=== PATIENT | male | born 1970 | race Caucasian/White ===

== ENCOUNTER 2023-02-20 16:30 | Inpatient (IN) | payer OTHER ==
[~2023-02-20] VITALS: Ht 167.6 cm; Wt 59.0 kg
[2023-02-20 16:30] VITALS: RESP 15; O2SAT 96
[2023-02-20] MEDS ORDERED: ACETAMINOPHEN 325 MG TAB PO PRN (16:55)
[2023-02-20] MEDS ORDERED: POTASSIUM CHLORIDE 10 MEQ TABER PO PRN (16:55)
[2023-02-20] MEDS ORDERED: MAG SULF 2000 MG/WATER PREMIX 50 ML IV PRN (16:55)
[2023-02-20] MEDS ORDERED: MAGNESIUM OXIDE 400 MG TAB PO PRN (16:55)
[2023-02-20] MEDS ORDERED: KCL 20 MEQ IN 100 mL PREMIX 200 ML IV PRN (16:55)
[2023-02-20] MEDS ORDERED: HYDROcodone/APAP 5/325 MG 1 TAB TAB PO PRN (16:55)
[2023-02-20] MEDS ORDERED: HALOPERIDOL IM 5 MG/ML VIAL IM PRN (16:55)
[2023-02-20] MEDS ORDERED: ONDANSETRON 4 MG/2 ML VIAL IVP PRN (16:55)
[2023-02-20] MEDS ORDERED: HALOPERIDOL IM 5 MG/ML VIAL ONE (17:01)
[2023-02-20 20:00] VITALS: BP 135/72; PULSE 64; RESP 17; TEMP 97.7; O2SAT 94
[2023-02-20] MEDS: LORazepam 2 MG/ML VIAL IVP PRN (21:12)
[2023-02-21 04:00] VITALS: BP 120/73; PULSE 60; RESP 18; TEMP 96.9; O2SAT 100
[2023-02-21 08:00] VITALS: PULSE 64; RESP 17; O2SAT 94
[2023-02-21] MEDS: MORPHINE SULFATE 4 MG/ML SYR IVP PRN ×2 (11:53→16:26)
[2023-02-21] MEDS: LORazepam 2 MG/ML VIAL IVP PRN ×2 (14:26→21:17)
[2023-02-21 18:00] VITALS: BP 120/73; PULSE 60; RESP 18; TEMP 96.9; O2SAT 100
[2023-02-21 20:00] VITALS: BP 131/88; PULSE 58; RESP 18; TEMP 98.1; O2SAT 100
[2023-02-22 04:00] VITALS: BP 100/61; PULSE 57; RESP 16; TEMP 97.5; O2SAT 100
[2023-02-22 07:42] LABS: BASOPHILS % (AUTO) 0.6 % (0.0-2.0); EOSINOPHILS # (AUTO) 0.3 K/uL (0-0.4); EOSINOPHILS % (AUTO) 5.6 % (0.0-4.0); HEMATOCRIT 38.4 % (36-52); HEMOGLOBIN 13.1 g/dL (12.0-18.0); LYMPHOCYTES # (AUTO) 1.3 K/uL (2.0-11.5); LYMPHOCYTES % (AUTO) 26.4 % (20.5-51.1); MEAN CORPUSCULAR HEMOGLOBIN 32 pg (27-31); MEAN CORPUSCULAR HGB CONC 34 g/dL (33-37); MEAN CORPUSCULAR VOLUME 92.4 fL (80-94); MONOCYTES # (AUTO) 0.5 K/uL (0.8-1.0); MONOCYTES % (AUTO) 10.5 % (1.7-9.3); NEUTROPHILS # (AUTO) 2.9 K/uL (1.8-7.7); NEUTROPHILS % (AUTO) 56.9 % (42.2-75.2); PLATELET COUNT (AUTO) 281 K/uL (140-450); RED BLOOD CELL COUNT(AUTO) 4.16 MIL/uL (4.20-6.10); RED CELL DISTRIBUTION WIDTH 12.7 % (11.6-13.7); WHITE BLOOD COUNT (AUTO) 5.1 K/uL (4.8-10.8)
[2023-02-22 08:00] VITALS: BP 100/61; PULSE 57; RESP 16; TEMP 97.5; O2SAT 100
[2023-02-22 08:07] LABS: ALBUMIN 2.9 g/dL (3.4-5.0); ANION GAP 10.4 (8-16); CALCIUM 7.8 mg/dL (8.5-10.1); CARBON DIOXIDE 28.1 mmol/L (21-32); CREATININE 0.7 mg/dL (0.6-1.3); POTASSIUM 3.5 mmol/L (3.5-5.1); TOTAL BILIRUBIN 0.3 mg/dL (0.0-1.0); TOTAL PROTEIN, SERUM 5.9 g/dL (6.4-8.2)
[2023-02-22] MEDS: LORazepam 2 MG/ML VIAL IVP PRN ×2 (08:09→13:31)
[2023-02-22 09:02] VITALS: PULSE 62; RESP 20; O2SAT 99
[2023-02-22] MEDS: HALOPERIDOL IM 5 MG/ML VIAL IM PRN ×2 (09:04→23:43)
[2023-02-22] MEDS ORDERED: COMMUNICATION ORDER MC PRN (10:50)
[2023-02-22] MEDS ORDERED: LORazepam 1 MG TAB PO PRN (11:00)
[2023-02-22] MEDS ORDERED: ALUMINUM HYD/MAG/SIMETHICONE 30 ML UDC PO PRN (11:00)
[2023-02-22] MEDS: VALPROIC ACID 250 MG/5 ML UDC PO SCH ×2 (13:31→16:22)
[2023-02-22] MEDS: PHENYTOIN 100 MG CAPER PO SCH (13:31)
[2023-02-22 16:00] VITALS: BP 100/61; PULSE 57; RESP 16; TEMP 97.5; O2SAT 100
[2023-02-22] MEDS: MORPHINE SULFATE 4 MG/ML SYR IVP PRN ×2 (16:22)
[2023-02-22 20:00] VITALS: BP 125/66; PULSE 65; RESP 18; TEMP 97.5; O2SAT 100
[2023-02-22] MEDS: OXcarbazepine 150 MG TAB PO SCH (21:10)
[2023-02-22] MEDS: LACOSAMIDE 100 MG TAB PO SCH (21:10)
[2023-02-22] MEDS: QUEtiapine FUMARATE 25 MG TAB PO SCH (21:10)
[2023-02-22] MEDS: levETIRAcetam 500 MG TAB PO SCH (21:10)
[2023-02-22] MEDS: NORTRIPTYLINE 10 MG CAP PO SCH (21:11)
[2023-02-22] MEDS: SENNA 8.6 MG TAB PO SCH (21:11)
[2023-02-23 04:00] VITALS: BP 123/69; PULSE 53; RESP 17; TEMP 97.6; O2SAT 100
[2023-02-23 07:17] LABS: BASOPHILS % (AUTO) 0.6 % (0.0-2.0); EOSINOPHILS # (AUTO) 0.3 K/uL (0-0.4); EOSINOPHILS % (AUTO) 5.7 % (0.0-4.0); HEMATOCRIT 39.4 % (36-52); HEMOGLOBIN 13.5 g/dL (12.0-18.0); LYMPHOCYTES # (AUTO) 1.7 K/uL (2.0-11.5); LYMPHOCYTES % (AUTO) 27.9 % (20.5-51.1); MEAN CORPUSCULAR HEMOGLOBIN 32 pg (27-31); MEAN CORPUSCULAR HGB CONC 34 g/dL (33-37); MONOCYTES # (AUTO) 0.6 K/uL (0.8-1.0); MONOCYTES % (AUTO) 10.8 % (1.7-9.3); NEUTROPHILS # (AUTO) 3.3 K/uL (1.8-7.7); PLATELET COUNT (AUTO) 273 K/uL (140-450); RED BLOOD CELL COUNT(AUTO) 4.29 MIL/uL (4.20-6.10); RED CELL DISTRIBUTION WIDTH 12.9 % (11.6-13.7)
[2023-02-23 07:25] LABS: ALBUMIN 3.2 g/dL (3.4-5.0); ANION GAP 9.5 (8-16); CALCIUM 8.2 mg/dL (8.5-10.1); CARBON DIOXIDE 29.5 mmol/L (21-32); CREATININE 0.6 mg/dL (0.6-1.3); TOTAL BILIRUBIN 0.3 mg/dL (0.0-1.0); TOTAL PROTEIN, SERUM 6.5 g/dL (6.4-8.2)
[2023-02-23 08:00] VITALS: BP 118/72; PULSE 62; RESP 18; TEMP 96.3; O2SAT 96
[2023-02-23] MEDS: SENNA 8.6 MG TAB PO SCH ×2 (08:31→21:56)
[2023-02-23] MEDS: CALCIUM CARB/VIT-D 500 MG/200 IU 1 TAB PO SCH (08:31)
[2023-02-23] MEDS: VALPROIC ACID 250 MG/5 ML UDC PO SCH ×3 (08:31→17:46)
[2023-02-23] MEDS: OXcarbazepine 150 MG TAB PO SCH ×2 (08:32→21:55)
[2023-02-23] MEDS: MULTIVITAMIN/MINERALS 1 TAB PO SCH (08:32)
[2023-02-23] MEDS: levETIRAcetam 500 MG TAB PO SCH ×2 (08:32→21:54)
[2023-02-23] MEDS: LACOSAMIDE 100 MG TAB PO SCH ×2 (08:33→21:56)
[2023-02-23] MEDS: QUEtiapine FUMARATE 25 MG TAB PO SCH ×2 (08:33→21:55)
[2023-02-23] MEDS: PHENYTOIN 100 MG CAPER PO SCH (08:33)
[2023-02-23] MEDS: HALOPERIDOL IM 5 MG/ML VIAL IM PRN (09:21)
[2023-02-23] MEDS: LORazepam 2 MG/ML VIAL IVP PRN (15:18)
[2023-02-23 20:00] VITALS: BP 109/73; PULSE 64; RESP 18; TEMP 97.4; O2SAT 96
[2023-02-23] MEDS: NORTRIPTYLINE 10 MG CAP PO SCH (21:55)
[2023-02-24 04:00] VITALS: BP 112/76; PULSE 61; RESP 19; TEMP 96.6; O2SAT 99
[2023-02-24 07:16] LABS: BASOPHILS % (AUTO) 0.6 % (0.0-2.0); EOSINOPHILS # (AUTO) 0.3 K/uL (0-0.4); EOSINOPHILS % (AUTO) 4.7 % (0.0-4.0); HEMATOCRIT 40.5 % (36-52); HEMOGLOBIN 13.9 g/dL (12.0-18.0); LYMPHOCYTES # (AUTO) 1.7 K/uL (2.0-11.5); LYMPHOCYTES % (AUTO) 28.1 % (20.5-51.1); MEAN CORPUSCULAR HEMOGLOBIN 31 pg (27-31); MEAN CORPUSCULAR HGB CONC 34 g/dL (33-37); MONOCYTES # (AUTO) 0.6 K/uL (0.8-1.0); MONOCYTES % (AUTO) 10.5 % (1.7-9.3); NEUTROPHILS # (AUTO) 3.4 K/uL (1.8-7.7); NEUTROPHILS % (AUTO) 56.1 % (42.2-75.2); PLATELET COUNT (AUTO) 302 K/uL (140-450); RED BLOOD CELL COUNT(AUTO) 4.41 MIL/uL (4.20-6.10); RED CELL DISTRIBUTION WIDTH 13.1 % (11.6-13.7)
[2023-02-24 07:52] LABS: ALBUMIN 3.2 g/dL (3.4-5.0); ANION GAP 12.7 (8-16); CALCIUM 8.5 mg/dL (8.5-10.1); CARBON DIOXIDE 28.5 mmol/L (21-32); CREATININE 0.7 mg/dL (0.6-1.3); POTASSIUM 4.2 mmol/L (3.5-5.1); TOTAL BILIRUBIN 0.4 mg/dL (0.0-1.0); TOTAL PROTEIN, SERUM 6.8 g/dL (6.4-8.2)
[2023-02-24 08:00] VITALS: BP 120/89; PULSE 59; RESP 18; TEMP 98.7; O2SAT 100; O2SAT 99
[2023-02-24] MEDS: QUEtiapine FUMARATE 25 MG TAB PO SCH ×2 (09:58→22:38)
[2023-02-24] MEDS: MULTIVITAMIN/MINERALS 1 TAB PO SCH (09:58)
[2023-02-24] MEDS: SENNA 8.6 MG TAB PO SCH ×2 (09:58→22:35)
[2023-02-24] MEDS: levETIRAcetam 500 MG TAB PO SCH ×2 (09:59→22:37)
[2023-02-24] MEDS: PHENYTOIN 100 MG CAPER PO SCH (09:59)
[2023-02-24] MEDS: OXcarbazepine 150 MG TAB PO SCH ×2 (09:59→22:35)
[2023-02-24] MEDS: CALCIUM CARB/VIT-D 500 MG/200 IU 1 TAB PO SCH (09:59)
[2023-02-24] MEDS: LACOSAMIDE 100 MG TAB PO SCH ×2 (09:59→22:36)
[2023-02-24] MEDS: VALPROIC ACID 250 MG/5 ML UDC PO SCH ×3 (10:00→17:59)
[2023-02-24] MEDS: LORazepam 2 MG/ML VIAL IVP PRN (11:01)
[2023-02-24] MEDS: HALOPERIDOL IM 5 MG/ML VIAL IM PRN (13:56)
[2023-02-24 16:00] VITALS: BP 112/70; PULSE 82; RESP 18; TEMP 98.2; O2SAT 98
[2023-02-24 20:00] VITALS: PULSE 65; RESP 17; O2SAT 100
[2023-02-24] MEDS: NORTRIPTYLINE 10 MG CAP PO SCH (22:37)
[2023-02-25 07:28] LABS: ANION GAP 12.3 (8-16); CALCIUM 8.3 mg/dL (8.5-10.1); CARBON DIOXIDE 28.8 mmol/L (21-32); CREATININE 0.6 mg/dL (0.6-1.3); POTASSIUM 4.1 mmol/L (3.5-5.1); TOTAL BILIRUBIN 0.3 mg/dL (0.0-1.0); TOTAL PROTEIN, SERUM 6.5 g/dL (6.4-8.2)
[2023-02-25 07:39] LABS: BASOPHILS % (AUTO) 0.7 % (0.0-2.0); EOSINOPHILS # (AUTO) 0.3 K/uL (0-0.4); EOSINOPHILS % (AUTO) 4.8 % (0.0-4.0); HEMATOCRIT 41.4 % (36-52); HEMOGLOBIN 14.1 g/dL (12.0-18.0); LYMPHOCYTES # (AUTO) 1.4 K/uL (2.0-11.5); LYMPHOCYTES % (AUTO) 26.4 % (20.5-51.1); MEAN CORPUSCULAR HEMOGLOBIN 31 pg (27-31); MEAN CORPUSCULAR HGB CONC 34 g/dL (33-37); MEAN CORPUSCULAR VOLUME 92.3 fL (80-94); MONOCYTES # (AUTO) 0.5 K/uL (0.8-1.0); MONOCYTES % (AUTO) 9.8 % (1.7-9.3); NEUTROPHILS # (AUTO) 3.1 K/uL (1.8-7.7); NEUTROPHILS % (AUTO) 58.3 % (42.2-75.2); PLATELET COUNT (AUTO) 324 K/uL (140-450); RED BLOOD CELL COUNT(AUTO) 4.48 MIL/uL (4.20-6.10); RED CELL DISTRIBUTION WIDTH 12.8 % (11.6-13.7); WHITE BLOOD COUNT (AUTO) 5.3 K/uL (4.8-10.8)
[2023-02-25 08:00] VITALS: BP 90/61; PULSE 64; RESP 18; TEMP 97.4; O2SAT 100
[2023-02-25] MEDS: PHENYTOIN 100 MG CAPER PO SCH (09:39)
[2023-02-25] MEDS: SENNA 8.6 MG TAB PO SCH ×2 (09:39→20:18)
[2023-02-25] MEDS: OXcarbazepine 150 MG TAB PO SCH ×2 (09:39→20:19)
[2023-02-25] MEDS: LACOSAMIDE 100 MG TAB PO SCH ×2 (09:40→20:17)
[2023-02-25] MEDS: MULTIVITAMIN/MINERALS 1 TAB PO SCH (09:40)
[2023-02-25] MEDS: QUEtiapine FUMARATE 25 MG TAB PO SCH ×2 (09:40→20:19)
[2023-02-25] MEDS: CALCIUM CARB/VIT-D 500 MG/200 IU 1 TAB PO SCH (09:40)
[2023-02-25] MEDS: VALPROIC ACID 250 MG/5 ML UDC PO SCH ×3 (09:49→17:35)
[2023-02-25] MEDS: levETIRAcetam 500 MG TAB PO SCH ×2 (10:02→20:16)
[2023-02-25] MEDS: HALOPERIDOL IM 5 MG/ML VIAL IM PRN (15:38)
[2023-02-25 16:00] VITALS: BP 92/60; PULSE 79; RESP 18; TEMP 97.4; O2SAT 100
[2023-02-25 20:00] VITALS: BP 110/74; PULSE 64; PULSE 74; RESP 18; RESP 19; TEMP 97; O2SAT 100
[2023-02-25] MEDS: MELATONIN 3 MG TAB PO PRN (20:17)
[2023-02-25] MEDS: NORTRIPTYLINE 10 MG CAP PO SCH (20:18)
[2023-02-26 08:00] VITALS: BP 123/73; PULSE 59; RESP 18; TEMP 97.8; O2SAT 100
[2023-02-26] MEDS: MULTIVITAMIN/MINERALS 1 TAB PO SCH (09:00)
[2023-02-26] MEDS: VALPROIC ACID 250 MG/5 ML UDC PO SCH ×3 (10:02→17:40)
[2023-02-26] MEDS: LACOSAMIDE 100 MG TAB PO SCH ×2 (10:03→21:29)
[2023-02-26] MEDS: OXcarbazepine 150 MG TAB PO SCH ×2 (10:03→21:30)
[2023-02-26] MEDS: PHENYTOIN 100 MG CAPER PO SCH (10:04)
[2023-02-26] MEDS: levETIRAcetam 500 MG TAB PO SCH ×2 (10:04→21:30)
[2023-02-26] MEDS: CALCIUM CARB/VIT-D 500 MG/200 IU 1 TAB PO SCH (10:04)
[2023-02-26] MEDS: SENNA 8.6 MG TAB PO SCH ×2 (10:04→21:31)
[2023-02-26] MEDS: QUEtiapine FUMARATE 25 MG TAB PO SCH ×2 (10:05→21:30)
[2023-02-26] MEDS: HALOPERIDOL IM 5 MG/ML VIAL IM PRN (11:25)
[2023-02-26 16:00] VITALS: BP 120/80; PULSE 72; RESP 16; TEMP 97.2; O2SAT 100
[2023-02-26] MEDS ORDERED: SENN-74 PO (17:09)
[2023-02-26] MEDS ORDERED: KEP500 PO (17:09)
[2023-02-26] MEDS ORDERED: CALC-55 PO (17:09)
[2023-02-26] MEDS ORDERED: ACET-1182 PO (17:09)
[2023-02-26] MEDS ORDERED: MELA3TAB21 PO (17:09)
[2023-02-26] MEDS ORDERED: MULT-2086 PO (17:09)
[2023-02-26] MEDS ORDERED: QUET25TA46 PO (17:09)
[2023-02-26] MEDS ORDERED: OXCA150T28 PO (17:09)
[2023-02-26] MEDS ORDERED: VALP-22 PO (17:09)
[2023-02-26] MEDS ORDERED: LACO100T2 PO (17:09)
[2023-02-26] MEDS ORDERED: LORA-476 PO (17:11)
[2023-02-26] MEDS ORDERED: PHEN100C4 PO (17:11)
[2023-02-26] MEDS ORDERED: PAM10 PO (17:11)
[2023-02-26] MEDS: LORazepam 1 MG TAB PO PRN (17:40)
[2023-02-26 20:00] VITALS: BP 107/62; PULSE 60; RESP 16; TEMP 98.6; O2SAT 100
[2023-02-26] MEDS: NORTRIPTYLINE 10 MG CAP PO SCH (21:31)
[2023-02-27] VITALS: BP 102/71; PULSE 61; RESP 16; RESP 18; TEMP 98.4; O2SAT 100
[2023-02-27] MEDS: MELATONIN 3 MG TAB PO PRN (00:46)
[2023-02-27 08:00] VITALS: BP 115/75; PULSE 59; PULSE 60; RESP 16; RESP 17; TEMP 96.8; O2SAT 100
[2023-02-27] MEDS: CALCIUM CARB/VIT-D 500 MG/200 IU 1 TAB PO SCH (09:14)
[2023-02-27] MEDS: MULTIVITAMIN/MINERALS 1 TAB PO SCH (09:14)
[2023-02-27] MEDS: PHENYTOIN 100 MG CAPER PO SCH (09:14)
[2023-02-27] MEDS: levETIRAcetam 500 MG TAB PO SCH (09:15)
[2023-02-27] MEDS: SENNA 8.6 MG TAB PO SCH (09:16)
[2023-02-27] MEDS: LACOSAMIDE 100 MG TAB PO SCH (09:17)
[2023-02-27] MEDS: QUEtiapine FUMARATE 25 MG TAB PO SCH (09:17)
[2023-02-27] MEDS: OXcarbazepine 150 MG TAB PO SCH (09:17)
[2023-02-27] MEDS: LORazepam 2 MG/ML VIAL IVP PRN (10:05)
[2023-02-27] MEDS: VALPROIC ACID 250 MG/5 ML UDC PO SCH ×2 (10:48→13:33)
[2023-02-27] MEDS: LORazepam 1 MG TAB PO PRN (13:48)
== END 2023-02-27 15:20 | DRG 92 ==
LOC: MTU 16:30
PROVIDERS: ADMIT Hospitalist; ATTEND Hospitalist
DX: G92.8 Other toxic encephalopathy (principal); E44.0 Moderate protein-calorie malnutrition; Z68.21 Body mass index [BMI] 21.0-21.9, adult; F32.A Depression, unspecified; F41.9 Anxiety disorder, unspecified; T50.905A Adverse effect of unspecified drugs, medicaments and biological substances, initial encounter; Y92.89 Other specified places as the place of occurrence of the external cause; F20.9 Schizophrenia, unspecified; R56.9 Unspecified convulsions
CPT/HCPCS: 36415; 70450; 71045; 80053; 84443; 85025; 87081; 97110; 97116; 97163-GP; 97530; J1630; J2060; J2270; J2405